=== PATIENT | male | born 1945 | race Caucasian/White ===

== ENCOUNTER 2016-11-12 08:51 | Inpatient (IN) | payer OTHER ==
[2016-10-28 09:38] VITALS: BMI 39.0
--- NOTE | 2016-10-28 10:15 | PAT Medication Instructions ---
Service Date Oct 28, 2016. Current Home Medication List Aspirin (Aspirin Ec), 81 MG PO QAM Cyanocobalamin (Cyanocobalamin), 1,000 MCG INJ MONTHLY Lisinopril (Zestril), 5 MG PO QAM Naproxen (Naproxen), 1 TAB PO BID PRN for PRN Sertraline (Zoloft), 50 MG PO QAM Medication Instructions For Your Scheduled Surgery - Hold the following medications 7 days prior to surgery per surgeon's instructions: Naproxen (Naproxen), 1 TAB PO BID PRN - Hold the following medications the morning of surgery: Lisinopril (Zestril), 5 MG PO QAM - Take the following medications the morning of surgery with a sip of water OTHERWISE NOTHING TO EAT OR DRINK AFTER MIDNIGHT:: Sertraline (Zoloft), 50 MG PO QAM Aspirin (Aspirin Ec), 81 MG PO QAM Tylenol (may take if needed up to 4 hours prior to surgery) If you have any questions please call us at [phone] or [phone] or [phone]
--- NOTE | 2016-10-28 10:53 | DIAGNOSTIC IMAGING REPORT ---
CHEST PREADMISSION(PA/LAT) HISTORY: Preop. COMPARISON: None. FINDINGS: The lungs are clear. The heart is normal in size. No pleural effusions. No pneumothorax. Tortuous thoracic aorta. IMPRESSION: No acute process. Electronically signed by: Néstor Romero M.D. 10/28/2016 10:51 AM Dictated Date/Time: 10/28/2016 10:51 AM
[2016-10-28 11:56] LABS: URINE APPEARANCE CLEAR (CLEAR); URINE COLOR ORANGE; URINE NITRITE NEG (NEG); URINE SPECIFIC GRAVITY 1.028 (1.000-1.030); UROBILINOGEN NEG (NEG)
[2016-10-28 11:57] LABS: PARTIAL THROMBOPLASTIN RATIO 1.2; PROTHROMBIN TIME (PATIENT) 10.9 SECONDS (9.0-12.0)
[2016-10-28 11:58] LABS: MANUAL MICROSCOPIC REQUIRED? NO; REVIEW REQ? NO
[2016-10-28 12:02] LABS: ESTIMATED AVERAGE GLUCOSE 114 mg/dl; HA1C FLAG Normal (Normal)
[2016-10-28 12:06] LABS: BASO % 0.5 %; BASO ABS # 0.04 K/uL (0-0.2); COMPLETE YES; EOS % 1.6 %; HEMATOCRIT 44.4 % (42-52); IG% 0.3 %; LYMPH % 17.1 %; LYMPH ABS # 1.47 K/uL (1.2-3.4); MEAN CELL VOLUME 88.8 fL (80-100); MEAN CORPUSCULAR HEMOGLOBIN 30.4 pg (25-34); MEAN CORPUSCULAR HGB CONC 34.2 g/dl (32-36); MEAN PLATELET VOLUME 9.6 fL (7.4-10.4); MONO % 13.3 %; NEUT % 67.2 %; PLATELET COUNT 236 K/uL (130-400); WHITE BLOOD COUNT 8.58 K/uL (4.8-10.8)
[2016-10-28 12:07] LABS: URINE BILIRUBIN NEG (NEG)
[2016-10-28 12:41] LABS: BUN/CREATININE RATIO 12.9 (10-20); CREATININE 0.86 mg/dl (0.60-1.40)
--- NOTE | 2016-11-11 18:09 | HISTORY & PHYSICAL EXAMINATION ---
DATE OF ADMISSION: 11/12/2016 CHIEF COMPLAINT: Right knee pain. HISTORY OF PRESENT ILLNESS: The patient is a 71-year-old male with known osteoarthritis about the right knee. He has been treated through [facility] in the past. He has ongoing pain and disability and now desires to proceed with right total knee arthroplasty. PAST MEDICAL HISTORY: Hypertension, sleep apnea with CPAP use, prostate CA. PAST SURGICAL HISTORY: Prostate surgery, back surgery. MEDICATIONS: Aspirin 81 mg daily, naproxen 250 mg 2 times daily, Zoloft 25 mg daily. He states he is on a blood pressure medication, which he does not know the name. ALLERGIES: No known drug allergies. SOCIAL HISTORY: He states moderate weekly alcohol consumption. PHYSICAL EXAMINATION: GENERAL: Well-nourished, well-developed male who appears his stated age. HEENT: Normocephalic, atraumatic, extraocular movements intact, oropharynx pink and moist. NECK: Supple without adenopathy. LUNGS: Clear to auscultation bilaterally. HEART: Regular rate and rhythm. ABDOMEN: Soft, nontender, nondistended, obese. EXTREMITIES: The upper extremity within normal limits. The right knee is neutrally aligned. He complains primarily of medial compartment pain. His range of motion is approximately 0-120 degrees. X-RAYS: X-rays were reviewed. He has moderate to severe narrowing of the medial compartment with near complete loss of the joint space. He has mild degenerative changes about the patellofemoral joint as well. ASSESSMENT: Right knee degenerative joint disease. PLAN: Risks versus benefits were discussed. Consent was obtained. The patient's primary care physician is Dr. Moser at the [facility]. Will proceed with right total knee arthroplasty upon preop workup and medical clearance.
[2016-11-12] VITALS (9 sets, daily range): BP systolic 110–151; BP diastolic 75–92; PULSE 63–87; TEMP 36.3–36.7; O2SAT 94–99; Ht 170.2 cm; Wt 114.0 kg
[~2016-11-12] VITALS: Ht 170.2 cm; Wt 114.0 kg
[~2016-11-12 08:51] MED LIST: ACETAMINOPHEN 500 MG TAB PO SCH; ASPI81TA28 PO; BUPIVACAINE 0.5 % 5 MG/1 ML PF 10ML VIAL ONE; CYNI1000 INJ; CeleBREX 200 MG CAP PO SCH; DEXAMETHASONE 4 MG TAB PO SCH; FAMOTIDINE 20 MG TAB PO SCH; GABAPENTIN 300 MG CAP PO SCH; LACTATED RINGER'S 1000ML 1,000 ML IV SCH; LACTATED RINGER'S 1000ML 500 ML IV ONE; LACTATED RINGER'S 1000ML IV SCH; LISI-729 PO; METOCLOPRAMIDE HCL 10 MG TAB PO SCH; NAPR500T3 PO; ROPIVACAINE 5MG/ML 30 ML 150 MG, BUPIVACAINE/EPINEPHR 0.5% MPF 30 ML, KETOROLAC TROMETH... INFIL SCH; SERT50TA PO; TRANEXAMIC ACID INJ 1,000 MG in SODIUM CHLORIDE 0.9% 100ML 100 ML IV SCH
[2016-11-12] MEDS ORDERED: EpHEDrine SULFATE INJ 50 MG/ML AMP IV PRN (10:00)
[2016-11-12] MEDS ORDERED: FENTANYL CITRATE INJ 50 MCG/1 ML 2 ML VIAL IV PRN (10:00)
[2016-11-12] MEDS ORDERED: ATROPINE SULFATE 0.1 MG/ML 5ML SYR IV PRN (10:00)
[2016-11-12] MEDS ORDERED: ONDANSETRON INJ 2 MG/ML 2 ML VIAL IV PRN ×2 (10:00→13:45)
[2016-11-12] MEDS ORDERED: FENTANYL CITRATE INJ 50 MCG/1 ML 2 ML VIAL ONE (10:40)
[2016-11-12] MEDS ORDERED: MIDAZOLAM HCL 1 MG/ML 2ML VIAL ONE (10:40)
[2016-11-12] MEDS ORDERED: POVIDONE-IODINE OP SOLN 30 ML BTL ONE (11:33)
[2016-11-12] MEDS ORDERED: ORTHO JOINT ANESTHETIC ONE (11:33)
[2016-11-12] MEDS ORDERED: BACITRACIN 50000 UNIT VIAL ONE (11:33)
--- NOTE | 2016-11-12 11:35 | History & Physical Bridge Note ---
H&P Re-Evaluation Bridge Note: I have examined the patient, reviewed the History & Physical and in the interval since the performance of the History & Physical I have noted the following changes of clinical significance: No changes noted
[2016-11-12] MEDS: CEFAZOLIN 2000 MG/60 ML D5W 60 ML IV SCH ×2 (12:06→12:07)
--- NOTE | 2016-11-12 13:04 | [facility] Post Operative Brief Note ---
Immediate Operative Summary Operative Date Nov 12, 2016. Pre-Operative Diagnosis Right knee degenerative joint disease. Post-Operative Diagnosis same as pre-operative Procedure(s) Performed Right total knee athroplasty-cemented Surgeon Dr. Mata Edwards Licensed Psychiatric Technician Surgeon(s) TIGRE Bucio Estimated Blood Loss 20cc Findings severe OA Specimens Specimen A: Right knee bone and tissue Disposition Recovery Room / PACU
[2016-11-12] MEDS ORDERED: LIDOCAINE HCL 2% 2 ML VIAL (20MG/ML) ONE (13:39)
[2016-11-12] MEDS ORDERED: PROPOFOL IV EMULSION 10 MG/ML 20 ML VIAL IV ONE (13:39)
[2016-11-12] MEDS ORDERED: MoRPHine SULFATE 2 MG/ML CARP IV PRN (13:45)
[2016-11-12] MEDS ORDERED: OXYCODONE HCL IR 5 MG TAB (IMMEDIATE RELEASE) PO PRN (13:45)
[2016-11-12] MEDS ORDERED: MAGNESIUM HYDROXIDE SUSP 30 ML UDC PO PRN (13:45)
[2016-11-12] MEDS ORDERED: TAMSULOSIN HCL 0.4 MG CAP PO PRN (13:45)
[2016-11-12] MEDS ORDERED: ZOLPIDEM TARTRATE 5 MG TAB PO PRN (13:45)
[2016-11-12] MEDS ORDERED: ALUMINUM/MAGNESIUM/SIMETH (MAALOX MAX) 30 ML UDC PO PRN (13:45)
[2016-11-12] MEDS ORDERED: METOCLOPRAMIDE HCL INJ 5 MG/ML 2 ML VIAL IV PRN (13:45)
--- NOTE | 2016-11-12 14:01 | OPERATIVE REPORT ---
DATE OF OPERATION: 11/12/2016 PREOPERATIVE DIAGNOSIS: Osteoarthritis, right knee. POSTOPERATIVE DIAGNOSIS: Osteoarthritis, right knee. PROCEDURE: Right total knee arthroplasty. SURGEON: Dr. Edwards. TOOL INSPECTOR: Joel Vasquez PA-C ANESTHESIA: Spinal. COMPLICATIONS: None. IMPLANTS USED: Femoral size 4, tibia size 4, tibial poly 13, and patella size 39. OPERATION AND FINDINGS: Following induction of spinal anesthesia, the patient's right leg was prepped and draped in the usual sterile manner. Limb was exsanguinated with an Esmarch bandage and tourniquet was inflated to 350 mmHg. A longitudinal incision was made anteriorly. Subcutaneous tissue was sharply dissected. Electrocautery was used for hemostasis. Prepatellar bursa was incised and median parapatellar incision was performed. Patella was everted and the knee was flexed. Fat pad was removed to aid in visualization and the anterior and posterior cruciate ligaments were removed. The medial face of the tibia was cleared of soft tissue first with a Bovie and a Page elevator. This tissue was retracted posteriorly using a blunt Hohmann. A Werner retractor was used to expose the synovium above on the anterior aspect of the femur and this was removed down to bone. The PSI guide was placed on the distal femur and two pins were placed anteriorly and kept in position and two additional pins were placed distally and removed. The distal femoral cutting block was placed in position and the distal femoral cut was used in the +0 setting. Next, the cutting block was removed and the femoral 4 block was placed in the distal end of the femur. Care was taken to ensure appropriate external rotation and feeler gauge was used to ensure no notching would occur. The femoral block was centered on the distal femur and in the medial and lateral direction and was fixed using two bone screws. The gold pins were then removed. The oscillating saw was used to create the bone cuts and the distal femoral cutting block was removed and the reciprocating saw was used to further trim the femoral cuts as well as a deep in the area for the trochlear groove. Next, posterior condyle remnants were removed. Following this, a meniscal clamp and knife were utilized to remove the anterior portion of both medial and lateral meniscus. The proximal tibia PSI guide was placed into position and the proximal tibial cutting guide was screwed into position. The extra medullary alignment guide was utilized to ensure appropriate alignment. The proximal tibia was cut and the proximal tibial cutting block was removed and this bone fragment was removed. The appropriate guide was used to perform the notch cut on the distal femur and a lamina durable medical equipment technician and a cochlear knife were utilized to finish both medial and lateral meniscectomies to remove any remnants of the posterior or anterior cruciate ligaments. Following this, the distal femoral component was impacted into position and blunt Floyd was used to sublux the tibia anteriorly. The proximal tibia was sized and a 4 tibial tray was chosen as the size to be used. This was put into position and appropriate external rotation and a double check with extramedullary alignment guide was performed. The canal for the tibial stem was prepared first with a 17 mm drill and then the punch and a mallet and the trial tibial poly was placed. A 13 was chosen the size to be used. It was brought to extension and the patella was prepared with the patellar reamer. A 30 component was chosen the size to be used. The trial component was placed and knee was taken through a full range of motion and there was found to be no lateral subluxation of the tibia. No lateral release was required. The trials were all removed. The final components were obtained and assembled. Cement was mixed. The knee was thoroughly irrigated and the ortho mix was injected about the knee joint. The final components were cemented into position. After thoroughly suctioning and drying the bone ends, all excess cement was removed. The knee was held in extension while the cement hardened. The wound was irrigated and closed over a Hemovac drain. #1 Vicryl was used to close the extensor mechanism. Subcutaneous tissues closed using 0 Dexon. Skin was closed with kyle. Sterile dressing of Adaptic, 4 x 4's, sterile Webril, and Jeremy was applied. The patient tolerated the procedure well. Due to the complex nature of the procedure, the entire surgery was performed with the operational assistance of Joel Vasquez PA-C. The program assistant, under direct supervision, was involved in the actual performance of all aspects of the surgical procedure including hemostasis, tissue retraction and incision, instrument management, patient positioning, and wound closure. DISPOSITION: Recovery room stable. I attest to the content of the Intraoperative Record and any orders documented therein. Any exception s are noted below.
--- NOTE | 2016-11-12 14:33 | DIAGNOSTIC IMAGING REPORT ---
RIGHT KNEE 2 VIEWS CLINICAL HISTORY: Osteoarthritis. Postop study. COMPARISON: None. DISCUSSION: There are postsurgical changes of a total right knee arthroplasty and patellar resurfacing. The femoral and tibial components appear well seated. Overlying surgical drains are evident. There is air in the soft tissues consistent with history of recent surgery. IMPRESSION: Postsurgical changes of a total right knee arthroplasty. Electronically signed by: Chris Chang M.D. 11/12/2016 2:32 PM Dictated Date/Time: 11/12/2016 2:31 PM
[2016-11-12] MEDS ORDERED: MoRPHine SULFATE 10 MG/ML CARP/VIAL IV PRN (15:15)
[2016-11-12] MEDS ORDERED: MoRPHine SULFATE 4 MG/ML 1 ML CARP\\VIAL IV PRN (15:15)
[2016-11-12] MEDS: D5W AND 1/2NSS + 20MEQ KCL 1,000 ML IV SCH (15:24)
--- NOTE | 2016-11-12 15:38 | Anesthesiology Progress Note ---
Anesthesia Post Op Note Date & Time Nov 12, 2016 at 15:37 Vital Signs Pain Intensity: 0 Vital Signs Past 12 Hours Date Time Temp Pulse Resp B/P (MAP) Pulse Ox O2 Delivery O2 Flow Rate FiO2 11/12/16 15:10 36.4 75 16 113/78 (90) 95 Nasal Cannula 3.0 11/12/16 14:20 36.6 81 16 122/83 98 Nasal Cannula 2 11/12/16 14:10 36.6 81 16 124/74 98 Nasal Cannula 2 11/12/16 14:00 79 16 125/65 97 Nasal Cannula 2 11/12/16 13:50 74 16 112/67 97 Oxymask 10 11/12/16 13:43 36.6 83 16 113/96 99 Oxymask 10 11/12/16 09:19 36.7 74 18 151/88 94 Room Air Notes Mental Status: alert / awake / arousable, participated in evaluation Pt Amnestic to Procedure: Yes Nausea / Vomiting: adequately controlled Pain: adequately controlled Airway Patency, RR, SpO2: stable & adequate BP & HR: stable & adequate Hydration State: stable & adequate Neuraxial Anesthesia: was administered, sensory block is resolving Anesthetic Complications: no major complications apparent
[2016-11-12] MEDS: KETOROLAC TROMETHAMINE 15 MG/ML VIAL IV. SCH ×2 (15:57→21:41)
[2016-11-12] MEDS: FERROUS GLUCONATE 324 MG TAB PO SCH (17:22)
[2016-11-12] MEDS ORDERED: PNEUMOCOCCAL ADMINISTRATION CHARGE ONE (19:00)
[2016-11-12] MEDS ORDERED: PNEUMOCOCCAL POLYSACCHARIDES 25 MCG/0.5 ML VIAL/SYR IM. ONE (19:00)
[2016-11-12] MEDS ORDERED: INFLUENZA ADMINISTRATION CHARGE ONE (19:15)
[2016-11-12] MEDS ORDERED: INFLUENZA VACCINE HIGH DOSE 65+ 0.5 ML SYR IM. ONE (19:15)
[2016-11-12] MEDS: CEFAZOLIN IV 2,000 MG in DEXTROSE 5% 50ML 50 ML IV SCH (19:39)
[2016-11-12] MEDS: ASPIRIN 81 MG ECTAB PO SCH (20:43)
[2016-11-12] MEDS: DOCUSATE SODIUM 100 MG CAP PO SCH (20:43)
[2016-11-12] MEDS: ACETAMINOPHEN 500 MG TAB PO SCH (21:40)
[2016-11-13] MEDS: D5W AND 1/2NSS + 20MEQ KCL 1,000 ML IV SCH (01:09)
[2016-11-13 03:44] VITALS: BP 139/96; PULSE 81; TEMP 36.5; O2SAT 98
[2016-11-13] MEDS: CEFAZOLIN IV 2,000 MG in DEXTROSE 5% 50ML 50 ML IV SCH (04:00)
[2016-11-13] MEDS: KETOROLAC TROMETHAMINE 15 MG/ML VIAL IV. SCH ×2 (04:00→09:56)
[2016-11-13] MEDS: ACETAMINOPHEN 500 MG TAB PO SCH ×3 (05:34→21:30)
[2016-11-13 06:25] LABS: HEMATOCRIT 39.9 % (42-52); MEAN CELL VOLUME 87.5 fL (80-100); MEAN CORPUSCULAR HEMOGLOBIN 30.5 pg (25-34); MEAN CORPUSCULAR HGB CONC 34.8 g/dl (32-36); MEAN PLATELET VOLUME 9.4 fL (7.4-10.4); PLATELET COUNT 236 K/uL (130-400); RED BLOOD COUNT 4.56 M/uL (4.7-6.1); WHITE BLOOD COUNT 18.02 K/uL (4.8-10.8)
[2016-11-13 06:59] LABS: BUN/CREATININE RATIO 13.3 (10-20); CALCIUM 8.6 mg/dl (8.5-10.1); CREATININE 0.97 mg/dl (0.60-1.40); POTASSIUM 4.5 mmol/L (3.5-5.1)
[2016-11-13 07:05] VITALS: BP 161/83; PULSE 64; TEMP 36.5; O2SAT 96
[2016-11-13] MEDS ORDERED: DEXAMETHASONE INJ 10 MG in SYRINGE 0 ML IV ONE (07:30)
--- NOTE | 2016-11-13 07:35 | Orthopedic Progress Note ---
Orthopedic Progress Note Date of Service Nov 13, 2016. Subjective Post OP Day: 1 Reports: feeling well Objective N/V intact (Mild footdrop), dressing C/D/I (Hemovac in place) Date Time Temp Pulse Resp B/P (MAP) Pulse Ox O2 Delivery O2 Flow Rate FiO2 11/13/16 07:05 36.5 64 18 161/83 (109) 96 Room Air 11/13/16 03:44 36.5 81 16 139/96 (110) 98 Room Air 11/12/16 23:04 36.4 87 16 149/92 (111) 97 Room Air 11/12/16 19:40 Room Air 11/12/16 19:29 36.5 79 18 133/87 (102) 94 Room Air 11/12/16 17:39 36.3 66 18 123/85 (98) 99 Nasal Cannula 3.0 11/12/16 16:53 97 Nasal Cannula 2.0 11/12/16 16:40 36.4 65 18 116/77 (90) 99 Nasal Cannula 3.0 11/12/16 15:40 36.4 63 18 110/75 (87) 99 Nasal Cannula 3.0 11/12/16 15:10 36.4 75 16 113/78 (90) 95 Nasal Cannula 3.0 11/12/16 14:40 36.5 81 16 127/83 (98) 97 Nasal Cannula 2.0 11/12/16 14:40 97 Nasal Cannula 2.0 11/12/16 14:20 36.6 81 16 122/83 98 Nasal Cannula 2 11/12/16 14:10 36.6 81 16 124/74 98 Nasal Cannula 2 11/12/16 14:00 79 16 125/65 97 Nasal Cannula 2 11/12/16 13:50 74 16 112/67 97 Oxymask 10 11/12/16 13:43 36.6 83 16 113/96 99 Oxymask 10 11/12/16 09:19 36.7 74 18 151/88 94 Room Air Laboratory Results 24 Hours: Test 11/13/16 05:40 Hematocrit 39.9 % Hemoglobin 13.9 g/dL Assessment & Plan Assessment: 71 yo male stable POD #1 s/p right TKA Plan: 1. Med management 2. DVT prophylaxis- ASA, SCDs 3. PT/OT 4. D/C planning- home w/ OPPT
--- NOTE | 2016-11-13 07:39 | Discharge Instructions ---
Discharge Instructions Date of Service Nov 13, 2016. Admission Reason for Admission: Right Knee Osteoarthritis Discharge Discharge Diagnosis / Problem: Right knee arthritis Discharge Goals Goal(s): Decrease discomfort, Improve function Activity Recommendations Activity Limitations: as noted below Weightbearing Status: Right weightbearing (as tolerated) . Instructions / Follow-Up Instructions / Follow-Up ACTIVITY RECOMMENDATIONS: SELF CARE INSTRUCTIONS AFTER TOTAL KNEE REPLACEMENT A. You may need to continue a physical therapy program after discharge from the hospital. There are several options available to you. Your doctor will assist you in selecting the best one for you. 1. An out-patient facility 2 to 3 times a week for therapy or home therapy. 2. Continue working on all exercises taught to you in the hospital. Your goals should be to increase bending of your knee to 90 degrees and beyond and to fully straighten your knee. B. You may progress at your own pace from walking with a walker or crutches to a cane; then to no assistive devices. C. Make walking a part of your daily routine. Be up as much as comfortable with rest periods throughout the day. Rest with leg elevation is very important. Use the ice wrap frequently for the first 3-4 weeks. D. There are no restrictions on activities. You may ride in a car, shop, participate in loan expeditor and all social activities. E. Wear the long elastic stockings (SOMMER hose) 20 hours a day for 2 weeks after surgery. They can be removed several times a day for laundering and for a bath. F. You may shower, no tub baths until cleared by your doctor. SPECIAL CARE INSTRUCTIONS: VERY IMPORTANT TO READ AND REVIEW A. There are a few signs you need to watch for after you are home. Call [facility] if you notice any of the followin. Increased severe knee pain. Some pain is expected especially when you exercise. 2. Increased swelling in your leg or knee; pain or swelling of the calf muscle in either lower leg. 3. Any fluid drainage from the incision. 4. Shortness of breath or chest pain. B. Please call [facility] at if you have any concerns or questions about your operation or recovery. The doctor or his nurse will return your call promptly. C. You must take antibiotics before dental work, bladder, bowel or other surgery. Your doctor will provide you with a permanent care to carry describing this precaution. IMPORTANT: * REMEMBER TO TAKE ASPIRIN, 81 MG, TWICE DAILY FOR 4 WEEKS UNLESS OTHERWISE DIRECTED. THIS IS YOUR BLOOD THINNER. * HIGH RISK PATIENTS MAY BE PRESCRIBED A STRONGER BLOOD THINNER. THIS WILL BE PROVIDED AT DISCHARGE. * CALL IF INCREASED PAIN, REDNESS, DRAINAGE OR FEVER GREATER THAT 101. * WEAR SOMMER HOSE 20 HOURS PER DAY FOR 2 WEEKS. Silverlon- This is a large adhesive bandage that contains silver ions. This helps your incision heal by fighting off bacteria and protecting it from the outside environment. You are permitted to shower with this dressing. This will remain on your incision for 7 days and then should be removed. Some visible blood or drainage through the dressing window is normal. If there is significant drainage or leaking noted before the 7 days notify your doctor's office immediately. Once removed, keep incision clean and dry. If there is any drainage or redness noted, please call your surgeon. FOLLOW UP VISIT: If appointment is not already scheduled: Please call [facility] to make a follow-up appointment for 2 weeks after your surgery at . Current Hospital Diet Zip Skin Closure You will be given instructions by nursing staff at the time of discharge to care for your Zip Closure System. This devices uses plastic straps to keep your incision closed and protected throughout your recovery. If you have any questions please refer to these instructions first.Patient's current hospital diet: Regular Diet Discharge Diet Recommended Diet: Regular Diet Procedures Procedures Performed: Right total knee athroplasty-cemented Pending Studies Studies pending at discharge: no Laboratory Results Hemoglobin A1c Test 10/28/16 10:20 Range/Units Estimated Average Glucose 114 mg/dl Hemoglobin A1c 5.6 4.5-5.6 % Medical Emergencies . Who to Call and When: Medical Emergencies: If at any time you feel your situation is an emergency, please call 911 immediately. . Non-Emergent Contact Non-Emergency issues call your: Surgeon Call Non-Emergent contact if: temperature is above 101.5, your pain is not controlled, wound has increased drainage, wound has increased redness . "Provider Documentation" section prepared by Joel Vasquez PA-C. . VTE Core Measure Inpt VTE Proph given/why not?: Other Anticoagulation (ASA 81mg bid), T.E.D. Stockings, SCD's [place] Drug Monitoring Program Search Results: patient reviewed within database, no issues identified
[2016-11-13] MEDS: FERROUS GLUCONATE 324 MG TAB PO SCH ×3 (08:18→18:46)
[2016-11-13] MEDS: DOCUSATE SODIUM 100 MG CAP PO SCH ×2 (08:18→21:30)
[2016-11-13] MEDS: MULTIVITAMIN TAB PO SCH (08:18)
[2016-11-13] MEDS: ASPIRIN 81 MG ECTAB PO SCH ×2 (08:18→21:30)
[2016-11-13] MEDS: PANTOprazole SOD 40 MG TAB PO SCH (08:19)
[2016-11-13] MEDS: SERTRALINE HCL 50 MG TAB PO SCH (08:19)
[2016-11-13] MEDS: LISINOPRIL 5 MG TAB PO SCH (08:19)
[2016-11-13 11:04] VITALS: BP 122/77; PULSE 69; TEMP 36.4; O2SAT 94
[2016-11-13 15:45] VITALS: BP 130/80; PULSE 67; TEMP 36.6; O2SAT 94
[2016-11-13] MEDS: CeleBREX 200 MG CAP PO SCH (21:30)
[2016-11-13 23:20] VITALS: BP 153/98; PULSE 78; TEMP 36.9; O2SAT 98
[2016-11-14] MEDS: ACETAMINOPHEN 500 MG TAB PO SCH (05:48)
[2016-11-14 06:00] VITALS: BP 153/102; PULSE 84; TEMP 36.8; O2SAT 96
[2016-11-14 07:14] VITALS: BP 119/84; PULSE 69
[2016-11-14] MEDS: MULTIVITAMIN TAB PO SCH (07:25)
[2016-11-14] MEDS: PANTOprazole SOD 40 MG TAB PO SCH (07:25)
[2016-11-14] MEDS: SERTRALINE HCL 50 MG TAB PO SCH (07:25)
[2016-11-14] MEDS: FERROUS GLUCONATE 324 MG TAB PO SCH (07:25)
[2016-11-14] MEDS: ASPIRIN 81 MG ECTAB PO SCH (07:25)
[2016-11-14] MEDS: LISINOPRIL 5 MG TAB PO SCH (07:26)
--- NOTE | 2016-11-14 08:06 | Orthopedic Progress Note ---
Orthopedic Progress Note Date of Service Nov 14, 2016. Subjective Post OP Day: 2 Reports: feeling well Objective calves soft nontender, N/V intact, dressing C/D/I, toes mobile Date Time Temp Pulse Resp B/P (MAP) Pulse Ox O2 Delivery O2 Flow Rate FiO2 11/14/16 07:14 69 119/84 (96) 11/14/16 06:00 36.8 84 20 153/102 (119) 96 Room Air 11/13/16 23:30 Room Air 11/13/16 23:20 36.9 78 16 153/98 (116) 98 Room Air 11/13/16 16:00 Room Air 11/13/16 15:45 36.6 67 18 130/80 (97) 94 Room Air 11/13/16 11:04 36.4 69 18 122/77 (92) 94 Assessment & Plan Assessment: 71 yo male stable POD #2 s/p right TKA Plan: 1. Med management 2. DVT prophylaxis- ASA, SCDs 3. PT/OT 4. D/C planning- home w/ OPPT
[2016-11-14] MEDS ORDERED: ACET-24 PO (08:08)
[2016-11-14] MEDS ORDERED: RXC5 PO (08:08)
[2016-11-14] MEDS ORDERED: CLB200 PO (08:08)
[2016-11-14] MEDS ORDERED: ASPEC81 PO (08:08)
[2016-11-14] MEDS ORDERED: ONDA8TAB12 PO (08:08)
[2016-11-14] MEDS: DOCUSATE SODIUM 100 MG CAP PO SCH (08:14)
[2016-11-14] MEDS: CeleBREX 200 MG CAP PO SCH (08:14)
[2016-11-14 09:42] VITALS: BP 119/84; PULSE 69; TEMP 36.8; O2SAT 96
--- NOTE | 2016-11-25 18:59 | DISCHARGE SUMMARY ---
CHIEF COMPLAINT: Right knee pain. Please see complete history and physical examination. HOSPITAL COURSE: The patient underwent right total knee arthroplasty without complication. He tolerated the procedure well and was discharged to recovery room in stable condition. His postoperative course was relatively uneventful. His postoperative pain was reasonably well controlled with a combination of spinal anesthesia, adductor canal block, intraoperative joint injection, IV, and oral pain medications. He was started on aspirin for DVT prophylaxis. He also utilized SOMMER stockings and SCDs for additional prophylaxis. His H&H was stable and did not require transfusion. Surgical drain was discontinued on postoperative day 2, his surgical dressing will remain in place for approximately 7 days postoperative. He tolerated postoperative physical therapy reasonably well as he was bending his knee and ambulating appropriately. He was discharged home on postoperative day 2. He will continue his physical therapy as an outpatient. He will continue his aspirin for DVT prophylaxis and follow up in our office in approximately 10-14 days for his initial postop evaluation.
== END 2016-11-14 10:25 | disposition home or self-care (01) | DRG 470 ==
LOC: C.ACU 08:51 → C.3E 10:00 → ENRESERV 14:18
PROC: 0SRC0J9 Replacement of Right Knee Joint with Synthetic Substitute, Cemented, Open Approach (ICD-10-PCS; principal; 2016-11-12 11:45)
DX: M17.11 Unilateral primary osteoarthritis, right knee (principal); I10 Essential (primary) hypertension; I48.91 Unspecified atrial fibrillation; G47.33 Obstructive sleep apnea (adult) (pediatric); E66.9 Obesity, unspecified; Z68.39 Body mass index [BMI] 39.0-39.9, adult; Z99.89 Dependence on other enabling machines and devices; Z23 Encounter for immunization; Z87.891 Personal history of nicotine dependence; Z79.82 Long term (current) use of aspirin; Z79.899 Other long term (current) drug therapy

== ENCOUNTER → 2017-09-14 | Outpatient (CLI) | payer OTHER ==
[~2017-09-14] MED LIST changes: -ACETAMINOPHEN 500 MG TAB PO SCH; -ASPI81TA28 PO; -BUPIVACAINE 0.5 % 5 MG/1 ML PF 10ML VIAL ONE; -CeleBREX 200 MG CAP PO SCH; -DEXAMETHASONE 4 MG TAB PO SCH; -FAMOTIDINE 20 MG TAB PO SCH; -GABAPENTIN 300 MG CAP PO SCH; +IBUP-103 PO; -LACTATED RINGER'S 1000ML 1,000 ML IV SCH; -LACTATED RINGER'S 1000ML 500 ML IV ONE; -LACTATED RINGER'S 1000ML IV SCH; -METOCLOPRAMIDE HCL 10 MG TAB PO SCH; -NAPR500T3 PO; +RIVA1TAB4 PO; -ROPIVACAINE 5MG/ML 30 ML 150 MG, BUPIVACAINE/EPINEPHR 0.5% MPF 30 ML, KETOROLAC TROMETH... INFIL SCH; -TRANEXAMIC ACID INJ 1,000 MG in SODIUM CHLORIDE 0.9% 100ML 100 ML IV SCH; +[UNRECOGNIZED DRUG - REMARK] PO
[2017-09-14 12:58] LABS: BASO % 0.4 %; BASO ABS # 0.03 K/uL (0-0.2); EOS % 2.2 %; EOS ABS # 0.18 K/uL (0-0.5); HEMATOCRIT 44.1 % (42-52); IG# 0.01 K/uL (0.00-0.02); LYMPH % 21.7 %; LYMPH ABS # 1.75 K/uL (1.2-3.4); MEAN CORPUSCULAR HEMOGLOBIN 29.9 pg (25-34); MEAN PLATELET VOLUME 9.8 fL (7.4-10.4); MONO % 11.9 %; MONO ABS # 0.96 K/uL (0.11-0.59); NEUT % 63.7 %; NEUT ABS # 5.15 K/uL (1.4-6.5); PLATELET COUNT 255 K/uL (130-400); RED CELL DISTRIBUTION WIDTH CV 13.6 % (11.5-14.5); RED CELL DISTRIBUTION WIDTH SD 43.7 fL (36.4-46.3); WHITE BLOOD COUNT 8.08 K/uL (4.8-10.8)
[2017-09-14 13:04] LABS: INR 1.1 (0.9-1.1); PTT PATIENT 30.5 SECONDS (21.0-31.0)
[2017-09-14 14:30] LABS: BLOOD UREA NITROGEN 13 mg/dl (7-18); CALCIUM 8.6 mg/dl (8.5-10.1); CARBON DIOXIDE 25 mmol/L (21-32); CREATININE 1.09 mg/dl (0.60-1.40); GLUCOSE 91 mg/dl (70-99); POTASSIUM 4.4 mmol/L (3.5-5.1); SODIUM 138 mmol/L (136-145)
== END | disposition home or self-care (01) ==
LOC: C.CPL 10:37
PROVIDERS: ATTEND Orthopaedic Surgery Orthopaedic Surgery of the Spine
DX: Z01.812 Encounter for preprocedural laboratory examination (principal)

== ENCOUNTER 2017-10-01 07:10 | Inpatient (IN) | payer OTHER ==
[2017-09-10 09:09] VITALS: BMI 38.0
[2017-09-14 11:17] VITALS: BMI 39.0
--- NOTE | 2017-09-14 11:26 | PAT Medication Instructions ---
Service Date Sep 14, 2017. Current Home Medication List Cyanocobalamin (Cyanocobalamin), 1,000 MCG INJ MONTHLY Ibuprofen Tab (Advil), 400 MG PO PRN Lisinopril (Zestril), 5 MG PO QAM Rivaroxaban (Xarelto), 20 MG PO QPM Sertraline (Zoloft), 50 MG PO QAM [Back Ache], 1 TAB PO PRN Medication Instructions For Your Scheduled Surgery - Hold the following medications 2 weeks prior to surgery: Ibuprofen Tab (Advil), 400 MG PO PRN [Back Ache], 1 TAB PO PRN - Check with surgeon and jewel sawyer for instructions: Rivaroxaban (Xarelto), 20 MG PO QPM - Continue as directed: Cyanocobalamin (Cyanocobalamin), 1,000 MCG INJ MONTHLY - Hold the following medications the morning of surgery: Lisinopril (Zestril), 5 MG PO QAM - Take the following medications the morning of surgery with a sip of water: Sertraline (Zoloft), 50 MG PO QAM If you have any questions please call us at [phone] or [phone] or [phone]
[~2017-10-01] VITALS: Ht 170.2 cm; Wt 113.8 kg
[2017-10-01] VITALS (8 sets, daily range): BP systolic 126–157; BP diastolic 57–92; PULSE 73–105; TEMP 36.2–37; O2SAT 94–98; Ht 170.2 cm; Wt 113.8 kg
[~2017-10-01 07:10] MED LIST changes: +ACETAMINOPHEN 500 MG TAB PO SCH; +CEFAZOLIN 2000MG IV PUSH 15 ML IV SCH; +CeleBREX 200 MG CAP PO SCH; +GABAPENTIN 300 MG CAP PO SCH; +LACTATED RINGER'S 1000ML 1,000 ML IV SCH
[2017-10-01] MEDS ORDERED: FENTANYL CITRATE INJ 50 MCG/1 ML 2 ML VIAL ONE ×6 (09:12→12:33)
[2017-10-01] MEDS ORDERED: MIDAZOLAM HCL 1 MG/ML 2ML VIAL ONE (09:12)
--- NOTE | 2017-10-01 09:36 | History and Physical ---
History & Physical Date Oct 01, 2017. Chief Complaint Back and leg pain History of Present Illness The patient is a 71 year old male with complaints of back and leg pain Past Medical/Surgical History Medical Problems: (1) Arthritis of right knee Additional History Hepatic Disease: No Endocrine Disorder: No Kidney Disease: No Hypertension: Yes Heart Disease: No Bleeding Tendencies: No Infectious Diseases: No Allergies Coded Allergies: No Known Allergies (Unverified , 10/01/17) Home Medications Scheduled Cyanocobalamin (Cyanocobalamin), 1,000 MCG INJ MONTHLY Ibuprofen Tab (Advil), 400 MG PO PRN Lisinopril (Zestril), 5 MG PO QAM Rivaroxaban (Xarelto), 20 MG PO QPM Sertraline (Zoloft), 50 MG PO QAM [Back Ache], 1 TAB PO PRN Physical Examination Skin: warm/dry, no rash Eyes: normal inspection, EOMI, sclerae normal ENT: normal ENT inspection, pharynx normal Head: normocephalic, atraumatic Neck: supple, no adenopathy, trachea midline Respiratory/Chest: lungs clear, normal breath sounds, no respiratory distress Cardiovascular: regular rate, rhythm, no edema, no murmur Abdomen / GI: normal bowel sounds, non tender Back: normal inspection Extremities: normal inspection, normal range of motion Neurologic/Psych: no motor/sensory deficits, alert, normal reflexes, oriented x 3 Diagnosis Lumbar spinal stenosis with neurogenic claudication Plan of Treatment Revision decompression L5-S1 fusion L5-S1
[2017-10-01] MEDS ORDERED: BACITRACIN 50000 UNIT VIAL ONE (10:00)
[2017-10-01] MEDS ORDERED: BUPIVACAINE 0.5 % 5 MG/1 ML PF 10ML VIAL ONE (10:00)
[2017-10-01] MEDS ORDERED: BUPIVACAINE LIPOSOME 1/3% 266 MG/20 ML VIAL ONE (10:00)
[2017-10-01] MEDS ORDERED: SODIUM CHLORIDE 0.9% PF 50 ML VIAL ONE (10:00)
[2017-10-01] MEDS ORDERED: BUPIVACAINE/EPINEPHRINE 0.5% MPF 1:200,000 30 ML VIAL ONE (10:00)
[2017-10-01] MEDS ORDERED: HYDROmorphone INJ 2 MG/ML SYR/VIAL ONE ×3 (10:00→11:37)
[2017-10-01] MEDS ORDERED: SURGICEL ABSORB HEMOSTAT 2IN X 14IN TOP ONE (11:03)
[2017-10-01] MEDS ORDERED: DEXAMETHASONE SOD INJ 4 MG/ML VIAL ONE (11:18)
[2017-10-01] MEDS ORDERED: ONDANSETRON INJ 2 MG/ML 2 ML VIAL ONE (11:18)
[2017-10-01] MEDS ORDERED: PHENYLEPHRINE 100MCG/ML 5ML SYR ONE (11:18)
[2017-10-01] MEDS ORDERED: EpHEDrine SULFATE 50MG/5ML SYR ONE (11:18)
[2017-10-01] MEDS ORDERED: ALBUMIN HUMAN 5% 12.5 GM/250 ML VIAL IV ONE (11:36)
[2017-10-01] MEDS ORDERED: FLOSEAL HEMOSTATIC MATRIX 10ML TOP ONE (12:16)
--- NOTE | 2017-10-01 12:26 | [facility] Operative Report ---
Operative Report Operative Date Oct 01, 2017. Pre-Operative Diagnosis Lumbar spinal stenosis with neurogenic claudication Post-Operative Diagnosis Lumbar spinal stenosis with neurogenic claudication Procedure(s) Performed 1 5 S1. #2 posterior spinal fusion L5-S1. #3 placement posterior instrumentation L5-S1. #4 interbody fusion L5-S1. #5 placement of peek cage 9 x 22 mm L5-S1. #6 placement of local autograft in the posterior gutters. #7 placement InFUSE collagen sponge combined with master graft in the posterior gutters and ostial amp in the interbody space. Surgeon Dr. Leger Lead Shop Operator Surgeon(s) Melia Ware PA-C Estimated Blood Loss 650 ml Findings Severe spinal stenosis and neural foraminal disease L5-S1 on the right Specimens none per surgeon Anesthesia Type General Description of Procedure Patient was met with preoperatively case discussed all questions addressed. After informed consent obtained patient was taken to the operative suite underwent intubation and placed in the prone position on the Perico table on top of the Herber frame. All bony prominences well-padded eyes inspected to ensure no external pressure placed upon the. This point the lumbar spine was prepped and draped in the normal sterile fashion. Sharp dissection with the assistance of Bovie cautery was performed down to and exposing the remaining lamina and transverse processes of L5 and sacral ala bilaterally. From a caudal to cephalad fashion complete revision laminectomy of L5 was performed addressing severe lateral recess and foraminal disease on the right. If this complete pedicle screws were placed in L5 and S1 bilaterally with the assistance of fluoroscopy and appropriate size sandy placed. Through a transforaminal approach on the right complete discectomy was performed endplates created to subcortical bleeding bone and a 9 x 22 mm peek cage filled with ostium bone graft tapped in position. Infuse collagen sponge master graft and local autograft was placed in the posterior gutters. The rods were then locked in final position bilaterally. Approximately 80 cc of Exparel injected into the musculature. A 15 round MELISSA drain inserted. Incision was then closed with 1 Vicryl fascia 2-0 Vicryl subcutaneous and 4 Monocryl for fashion closure Steri-Strips sterile dressings placed. Patient will continue PACU stable condition. Please note Radha Ware was present throughout the entire procedure involved in patient positioning complex portions of the surgery and final skin closure. I attest to the content of the Intraoperative Record and any orders documented therein. Any exceptions are noted below.
[2017-10-01] MEDS ORDERED: MAGNESIUM HYDROXIDE SUSP 30 ML UDC PO PRN (12:30)
[2017-10-01] MEDS ORDERED: FAMOTIDINE 20 MG TAB PO PRN (12:30)
[2017-10-01] MEDS ORDERED: METOCLOPRAMIDE HCL INJ 5 MG/ML 2 ML VIAL IV PRN (12:30)
[2017-10-01] MEDS ORDERED: ACETAMINOPHEN IV 100 ML IV PRN (12:30)
[2017-10-01] MEDS ORDERED: hydrOXYzine HCL 25 MG TAB PO PRN (12:30)
[2017-10-01] MEDS ORDERED: CEFAZOLIN IV 2,000 MG in DEXTROSE 5% 50ML 50 ML IV SCH (12:30)
[2017-10-01] MEDS ORDERED: ACETAMINOPHEN 500 MG TAB PO PRN (12:30)
[2017-10-01] MEDS ORDERED: BISACODYL 10 MG SUPP PR PRN (12:30)
[2017-10-01] MEDS ORDERED: LORAZEPAM INJ 0.5 MG in SYRINGE 0.75 ML IV PRN (12:30)
[2017-10-01] MEDS ORDERED: ONDANSETRON INJ 2 MG/ML 2 ML VIAL IV PRN ×2 (12:30→13:45)
[2017-10-01] MEDS ORDERED: ALUMINUM/MAGNESIUM SUSP 30 ML UDC PO PRN (12:30)
[2017-10-01] MEDS ORDERED: PROMETHAZINE HCL INJ 12.5 MG in SODIUM CHLORIDE 0.9% 50ML 50 ML IV PRN (12:30)
[2017-10-01] MEDS ORDERED: SOD PHOSPHATE/SOD BIPHOSPHATE ENEMA 132 ML BTL PR PRN (12:30)
[2017-10-01] MEDS ORDERED: DO NOT ADMINISTER PNEUMOCOCCAL VACCINE PRN (12:30)
[2017-10-01] MEDS ORDERED: DO NOT ADMINISTER FLU VACCINE PRN (12:30)
[2017-10-01] MEDS ORDERED: LORAZEPAM 0.5 MG TAB PO PRN (12:30)
[2017-10-01] MEDS ORDERED: NALOXONE HCL 0.4 MG/1 ML VIAL/CARP IV PRN (12:30)
--- NOTE | 2017-10-01 12:37 | DIAGNOSTIC IMAGING REPORT ---
LUMBAR SPINE 2 OR 3 VIEW CLINICAL HISTORY: 71 years-old Male presenting with REVISE DECOMPRESSION L5-S1/L5-S1 INTERBODY FUSION. TECHNIQUE: 2 fluoroscopic image(s) recorded as part of an intraoperative procedure. COMPARISON: None. FINDINGS/IMPRESSION: Posterior bilateral transpedicular screw and sandy fixation of L5-S1 with an interbody spacer. L5 laminectomy defects suspected. Anatomic alignment preserved. Please see surgical report for further details. Fluoroscopy dosage (mGy): 25.77. Fluoroscopy time: 25.0 seconds. Number or time of fluoroscopic spot images: 0. Electronically signed by: Brian Brand M.D. 10/01/2017 12:36 PM Dictated Date/Time: 10/01/2017 12:35 PM
[2017-10-01] MEDS ORDERED: LABETALOL HCL IV 5 MG/ML 20ML ONE ×2 (13:03→13:16)
[2017-10-01] MEDS ORDERED: METOPROLOL TARTRATE 1 MG/ML VIAL ONE (13:16)
[2017-10-01] MEDS ORDERED: ESMOLOL HCL 10 MG/ML 10 ML VIAL ONE (13:16)
--- NOTE | 2017-10-01 13:44 | Anesthesiology Progress Note ---
Anesthesia Post Op Note Date & Time Oct 01, 2017 at 13:44 Vital Signs Pain Intensity: 0 Vital Signs Past 12 Hours Date Time Temp Pulse Resp B/P (MAP) Pulse Ox O2 Delivery O2 Flow Rate FiO2 10/01/17 13:35 81 21 157/93 95 Nasal Cannula 2 10/01/17 13:25 76 21 149/104 96 Nasal Cannula 2 10/01/17 13:15 79 17 143/75 97 Nasal Cannula 2 10/01/17 13:05 94 17 155/115 99 Nasal Cannula 2 10/01/17 12:56 36.2 105 15 159/116 100 Oxymask 10 10/01/17 07:52 37.0 73 20 157/92 95 Room Air Notes Mental Status: alert / awake / arousable, participated in evaluation Pt Amnestic to Procedure: Yes Nausea / Vomiting: adequately controlled Pain: adequately controlled Airway Patency, RR, SpO2: stable & adequate BP & HR: stable & adequate Hydration State: stable & adequate Anesthetic Complications: no major complications apparent
[2017-10-01] MEDS ORDERED: HYDROmorphone INJ 1 MG/ML SYR IV PRN (13:45)
[2017-10-01] MEDS ORDERED: FENTANYL CITRATE INJ 50 MCG/1 ML 2 ML VIAL IV PRN (13:45)
[2017-10-01] MEDS ORDERED: ATROPINE SULFATE 0.1 MG/ML 5ML SYR IV PRN (13:45)
[2017-10-01] MEDS ORDERED: EpHEDrine SULFATE INJ 50 MG/ML AMP IV PRN (13:45)
[2017-10-01] MEDS ORDERED: HydrALAZINE HCL 20 MG/ML VIAL ONE (13:58)
[2017-10-01] MEDS ORDERED: NURSING VERBAL MED ORDER ONE ×2 (14:00→16:15)
[2017-10-01] MEDS ORDERED: HYDROmorphone INJ 0.5 MG/0.5 ML SYR IV PRN (16:15)
[2017-10-01] MEDS: CEFAZOLIN IV 2,000 MG in SYRINGE 0 ML IV SCH (18:05)
[2017-10-01] MEDS: SODIUM CHLORIDE 0.9% 1000ML 1,000 ML IV SCH ×2 (19:06→20:47)
[2017-10-01] MEDS: DOCUSATE SODIUM/SENNA 50/8.6MG TAB PO SCH (20:47)
[2017-10-02] MEDS: CEFAZOLIN IV 2,000 MG in SYRINGE 0 ML IV SCH (02:51)
[2017-10-02] MEDS: SODIUM CHLORIDE 0.9% 1000ML 1,000 ML IV SCH (02:52)
[2017-10-02 03:10] VITALS: BP 138/84; PULSE 92; TEMP 36.4; O2SAT 93
[2017-10-02] MEDS ORDERED: NURSING VERBAL MED ORDER ONE (05:00)
[2017-10-02] MEDS ORDERED: OXYCODONE HCL IR 5 MG TAB (IMMEDIATE RELEASE) PO PRN (06:00)
[2017-10-02] MEDS ORDERED: HYDROmorphone INJ 0.5 MG/0.5 ML SYR IV PRN (06:00)
[2017-10-02 06:09] LABS: BASO % 0.1 %; BASO ABS # 0.01 K/uL (0-0.2); HEMATOCRIT 37.2 % (42-52); HEMOGLOBIN 11.8 g/dL (14.0-18.0); IG# 0.04 K/uL (0.00-0.02); LYMPH % 7.8 %; LYMPH ABS # 1.22 K/uL (1.2-3.4); MEAN CELL VOLUME 89.2 fL (80-100); MEAN CORPUSCULAR HEMOGLOBIN 28.3 pg (25-34); MEAN CORPUSCULAR HGB CONC 31.7 g/dl (32-36); MEAN PLATELET VOLUME 9.3 fL (7.4-10.4); MONO % 6.2 %; MONO ABS # 0.97 K/uL (0.11-0.59); NEUT % 85.6 %; NEUT ABS # 13.47 K/uL (1.4-6.5); PLATELET COUNT 209 K/uL (130-400); RED CELL DISTRIBUTION WIDTH CV 13.7 % (11.5-14.5); RED CELL DISTRIBUTION WIDTH SD 44.5 fL (36.4-46.3); WHITE BLOOD COUNT 15.71 K/uL (4.8-10.8)
[2017-10-02 06:37] LABS: CALCIUM 7.9 mg/dl (8.5-10.1); CREATININE 1.02 mg/dl (0.60-1.40); POTASSIUM 4.1 mmol/L (3.5-5.1)
[2017-10-02 06:58] VITALS: BP 130/87; PULSE 84; TEMP 36.5; TEMP 37.7; O2SAT 95
[2017-10-02] MEDS ORDERED: RXC5 PO (07:06)
--- NOTE | 2017-10-02 07:07 | Discharge Instructions ---
Discharge Instructions Date of Service Oct 02, 2017. Admission Reason for Admission: Lumbar Spinal Stenosis Discharge Discharge Diagnosis / Problem: lumbar stenosis Discharge Goals Goal(s): Improve function Activity Recommendations Activity Limitations: per Instructions/Follow-up section . Instructions / Follow-Up Instructions / Follow-Up ACTIVITY RECOMMENDATIONS: SELF CARE INSTRUCTIONS AFTER THORACIC/LUMBAR FUSIONS 1. You may walk to your tolerance. It is good exercise for your legs and back. Expect some back and intermittent leg aches and pains. 2. You may perform "counter-top" level activities (make a sandwich, liliana with a project, etc.). 3. No bending or lifting of more than 10 pounds or back twisting of any nature (roll like a log when turning in bed). 4. You may ride in a car for 20-30 minutes at a time. No driving until after your first visit with your doctor. 5. Frequent changes of position and restricting sitting to 30 minutes at a time will help limit the amount of back spasms and stiffness you may experience. 6. You may discontinue the use of ambulatory aids (cane, crutches, etc.) once your strength and confidence allow. 7. You may security alarm installer the shower and let water strike your incision when you arrive home at least once daily. Do not take a tub bath, sit in a hot tub or go into a swimming pool until after your first recheck in the office. SPECIAL CARE INSTRUCTIONS: VERY IMPORTANT TO READ AND REVIEW A. Your surgical incision has been closed with a cosmetic suture under the skin that will dissolve in about 6 weeks. In 14 days, you can use a pair of clean scissors and cut the suture that is left outside of the skin at the ends of your incision. 1. The small skin tapes can be removed 7 days after surgery if they have not fallen off by that point. 2. You may keep the wound open to air as much as possible to promote healing after post-op day number 5 unless told otherwise by your doctor. 3. If you think the wound looks like it is becoming infected (redness or worsening drainage) and/or you are experiencing fever, chill or worsening back pain and muscle spasms, contact the office so that we may evaluate you as soon as possible. B. Complications are uncommon, but please contact us if you have any signs or symptoms of: 1. wound infection (fever higher than 102.5 degrees F, redness, separation of wound, drainage, or increasing pain from the incision) 2. blood clots in legs (pain, swelling, redness and warmth in legs) 3. urinary tract infection (fever higher than 102.5 degrees F, burning upon urination or increased frequency of urination) 4. nerve problems (inability to walk on your toes or heels, numbness, loss of bowel or bladder control) 5. any other symptoms that concern you C. Please call the office at if you have any concerns or questions about your operation or recovery. D. No smoking! Smoking drastically decreases the chance of a solid fusion. E. Do not take any anti-inflammatory medications (Indocin, Advil, Motrin, Aspirin, Naprosyn, etc.) as these may inhibit the chance of a solid fusion. Tylenol is okay to take for pain. MANAGING PAIN AFTER SPINAL SURGERY 1. Narcotic medication is intended for short-term use and will be provided for surgical pain. Surgical pain usually lasts for a period of 4-6 weeks. Narcotic medication includes Percocet, Vicodin, Darvocet, Tylenol #3 or Lortab. 2. Longer-term pain is more appropriately treated with non-narcotic medication such as Tylenol ES. 3. Muscle spasm is not appropriately treated with narcotics. Muscle relaxers such as Soma, Flexeril or Skelaxin can be used along with Tylenol ES. 4. Remember that we all live with some "aches and pains". This is not unusual or uncommon after an injury or as we get older. a. Back pain is expected and may include muscle spasms for 4 to 6 weeks after surgery. The pain should gradually improve. If the pain worsens for no apparent reason, please contact the office. b. Intermittent leg pain may also be experienced and should not be concerned about unless it worsens for no apparent reason. If so, please contact the office. 5. We will provide appropriate medication within the normal guidelines of their prescribed use. We will also be very cautious and aware of potential abuse and extended duration of patients' medication needs. a. Pain medications are for your comfort and to assist with sleep and rest so that the tissue can heal. They are not provided in order to return to normal activity and should not be used through the day. To do so or worsening pain at night can result from ongoing tissue damage and development of tolerance to the prescribed medicine. 6. Please allow 2-3 days to process refills. Prescriptions will not be mailed but must be picked up at the office. FOLLOW UP VISIT: Keep your scheduled follow-up appointment. Any questions, please call the office at . Current Hospital Diet Patient's current hospital diet: Regular Diet Discharge Diet Recommended Diet: Regular Diet Procedures Procedures Performed: 1 5 S1. #2 posterior spinal fusion L5-S1. #3 placement posterior instrumentation L5-S1. #4 interbody fusion L5-S1. #5 placement of peek cage 9 x 22 mm L5-S1. #6 placement of local autograft in the posterior gutters. #7 placement InFUSE collagen sponge combined with master graft in the posterior gutters and ostial amp in the interbody space. Pending Studies Studies pending at discharge: no Medical Emergencies . Who to Call and When: Medical Emergencies: If at any time you feel your situation is an emergency, please call 911 immediately. . Non-Emergent Contact Non-Emergency issues call your: Primary Care Provider . "Provider Documentation" section prepared by Williams Leger. .
--- NOTE | 2017-10-02 07:32 | Progress Note ---
Progress Note Date of Service Oct 02, 2017. Progress Note Patient is postop day #1. Back pain is controlled. Leg symptoms improved. Vital signs are stable. On exam he is in the chair at the bedside. Is good strength testing. He is comfortable. Assessment status post lumbar decompression fusion per plan at this time will initiate physical therapy advance his bowel regimen anticipate home Wednesday or Wednesday.
[2017-10-02] MEDS: OXYCODONE HCL IR 5 MG TAB (IMMEDIATE RELEASE) PO PRN ×3 (07:38→13:40)
[2017-10-02] MEDS: LISINOPRIL 5 MG TAB PO SCH (09:24)
[2017-10-02] MEDS: SERTRALINE HCL 50 MG TAB PO SCH (09:25)
[2017-10-02 11:32] VITALS: BP 157/77; PULSE 101; TEMP 36.7; O2SAT 93
[2017-10-02 14:49] VITALS: BP 124/81; PULSE 80; TEMP 36.7; O2SAT 97
[2017-10-02] MEDS: KETOROLAC TROMETHAMINE 15 MG/ML VIAL IV. PRN (17:26)
[2017-10-02] MEDS: DOCUSATE SODIUM/SENNA 50/8.6MG TAB PO SCH (20:23)
[2017-10-02 23:25] VITALS: BP 132/84; PULSE 80; TEMP 36.7; O2SAT 97
[2017-10-03] MEDS: KETOROLAC TROMETHAMINE 15 MG/ML VIAL IV. PRN ×3 (05:02→23:44)
[2017-10-03] MEDS: POLYETHYLENE (MIRALAX) 17 GM PACK PO SCH ×4 (05:08→23:46)
[2017-10-03 06:02] VITALS: BP 125/78; PULSE 86; TEMP 36.9; O2SAT 92
[2017-10-03] MEDS: LISINOPRIL 5 MG TAB PO SCH (07:43)
[2017-10-03] MEDS: SERTRALINE HCL 50 MG TAB PO SCH (07:44)
--- NOTE | 2017-10-03 09:55 | Progress Note ---
Progress Note Date of Service Oct 03, 2017. Progress Note Patient's complaining significant back pain this morning it does radiate into the right buttock. This is improved with activity. Otherwise he is comfortable. Vital signs are stable. MELISSA drain decreasing appropriately. Assessment status post lumbar decompression fusion per plan at this time will continue therapy today ambulate as tolerated anticipate discharge home Wednesday.
[2017-10-03 15:24] VITALS: BP 132/67; PULSE 81; TEMP 36.7; O2SAT 95
[2017-10-03] MEDS: DOCUSATE SODIUM/SENNA 50/8.6MG TAB PO SCH (20:28)
[2017-10-03 23:30] VITALS: O2SAT 95
[2017-10-03 23:37] VITALS: BP 156/98; PULSE 85; TEMP 36.9; O2SAT 96
[2017-10-04] MEDS: POLYETHYLENE (MIRALAX) 17 GM PACK PO SCH ×2 (05:50→12:27)
[2017-10-04 07:16] VITALS: BP 153/96; PULSE 83; TEMP 36.7; O2SAT 96
--- NOTE | 2017-10-04 07:47 | Anesthesiology Progress Note ---
Anesthesia Post Op Note Date & Time Oct 04, 2017 at 07:46 Vital Signs Pain Intensity: 1 Vital Signs Past 12 Hours Date Time Temp Pulse Resp B/P (MAP) Pulse Ox O2 Delivery O2 Flow Rate FiO2 10/04/17 07:16 36.7 83 16 153/96 (115) 96 Room Air 10/03/17 23:37 36.9 85 16 156/98 (117) 96 Room Air 10/03/17 23:30 95 Room Air 2.0 Notes Mental Status: alert / awake / arousable Pt Amnestic to Procedure: Yes Nausea / Vomiting: adequately controlled Pain: adequately controlled Airway Patency, RR, SpO2: stable & adequate BP & HR: stable & adequate Hydration State: stable & adequate
[2017-10-04] MEDS: LISINOPRIL 5 MG TAB PO SCH (09:09)
[2017-10-04] MEDS: SERTRALINE HCL 50 MG TAB PO SCH (09:09)
[2017-10-04] MEDS: OXYCODONE HCL IR 5 MG TAB (IMMEDIATE RELEASE) PO PRN ×2 (09:10→13:46)
[2017-10-04 13:36] VITALS: BP 153/96; PULSE 83; TEMP 36.7; O2SAT 96
--- NOTE | 2017-10-04 15:44 | Discharge Summary ---
Orthopedic Discharge Summary Admission Date/Reason Oct 01, 2017 at 09:30 Lumbar Spinal Stenosis. Discharge Date/Disposition Oct 04, 2017 Home Diagnosis Principal Diagnosis: Lumbar spinal stenosis Admission Physical Exam As per Admitting History & Physical. Hospital Course Patient underwent lumbar depression fusion tolerated as well as taken to the orthopedic floor postoperatively. Postop day #1 he was up and ambulatory leg symptoms improved. He progressed nicely through postop day #2. MELISSA drain decreased appropriately. Subsequently was discharged home on postop day #3. Discharge orders and instructions can be found in the chart for further review. Discharge Instructions Please refer to the electronic Patient Visit Report (Discharge Instructions) for additional information.
== END 2017-10-04 14:23 | disposition home health service (06) | DRG 455 ==
LOC: C.ACU 07:10 → C.3E 09:30 → ENRESERV 13:42
PROVIDERS: ADMIT Orthopaedic Surgery Orthopaedic Surgery of the Spine; ATTEND Orthopaedic Surgery Orthopaedic Surgery of the Spine
PROC: 0ST40ZZ Resection of Lumbosacral Disc, Open Approach (ICD-10-PCS; principal; 2017-10-01 11:45)
PROC: 0SG3071 Fusion of Lumbosacral Joint with Autologous Tissue Substitute, Posterior Approach, Posterior Column, Open Approach (ICD-10-PCS; principal; 2017-10-01 11:45)
PROC: 0SG30AJ Fusion of Lumbosacral Joint with Interbody Fusion Device, Posterior Approach, Anterior Column, Open Approach (ICD-10-PCS; principal; 2017-10-01 11:45)
PROC: 3E0U0GB Introduction of Recombinant Bone Morphogenetic Protein into Joints, Open Approach (ICD-10-PCS; principal; 2017-10-01 11:45)
DX: M48.062 Spinal stenosis, lumbar region with neurogenic claudication (principal); M17.11 Unilateral primary osteoarthritis, right knee; I10 Essential (primary) hypertension